=== PATIENT | female | born 1985 | race African-American/Black ===

== ENCOUNTER → 2020-01-25 | Day surgery (SDC) | payer OTHER ==
--- NOTE | 2020-01-25 16:37 | RADIOLOGY REPORT (SQ) ---
EXAM DESCRIPTION: FNA BX W/ US GDN 1ST LES IMAGES COMPLETED DATE/TIME: 01/25/2020 3:00 pm REASON FOR STUDY: R59.0 LOCALIZED ENLARGED LYMPH NODES R59.0 LOCALIZED ENLARGED LYMPH NODES COMPARISON: PRIOR ULTRASOUND LIMITATIONS: None. PROCEDURE: Procedure, risks, benefit, and alternative explained to patient who then gave written con sent. The left neck was prepped and draped in a standard sterile fashion. A time-out was called for correct marking verification. Local anesthesia achieved using 10 ml of 1% lidocaine injection. Uti lizing direct ultrasound guidance fine-needle aspiration performed both of the left cervical lymph no de. A total of 2 passes was performed. On-site pathology deemed the specimens adequate. A sterile dressing was applied. No immediate complications noted. Images acquired during the procedure were stored on PACS. FINDINGS: Focused sonographic evaluation of the left neck demonstrated enlarged irregular appearing lymph node measuring 1.8 x 0.9 x 1.2 cm. Intraprocedural imaging demonstrates needle within the lesi on of interest. IMPRESSION: Successful ultrasound-guided fine-needle aspiration biopsy of the enlarged left cervical lymph node as above. Pathology pending. COMMENT: Patient medication list reviewed:Yes- Quality ID# [id number]:Eligible professional attests to docu menting in the medical record they obtained, updated, or reviewed the patient's current medications. TECHNICAL DOCUMENTATION: JOB ID: [id number] 2010 [employer]- All Rights Reserved Reading location - IP/workstation name: [email or web address]
== END ==
LOC: RAD 13:51 → EDSTATUS 14:30
PROVIDERS: ATTEND Otolaryngology
DX: R59.0 Localized enlarged lymph nodes (principal)
CPT/HCPCS: 10005; 88173

== ENCOUNTER 2020-03-08 09:19 | Day surgery (SDC) | payer OTHER ==
[~2020-03-08 09:19] MED LIST: CEFAZOLIN 2 GM/D5W RTU 2 GM/50 ML RTUPB IV PRN
[2020-03-08] MEDS ORDERED: LIDOCAINE 2%/EPINEPHRINE INJ 1.7 ML CARTRIDGE ONE (09:40)
[2020-03-08] MEDS ORDERED: MIDAZOLAM 2 MG/2 ML INJ ONE (09:44)
[2020-03-08] MEDS ORDERED: FENTANYL CITRATE INJ/PF 100 MCG/2 ML AMPUL ONE (09:44)
[2020-03-08] MEDS ORDERED: DEXAMETHASONE SOD PHOSPHATE INJ 4 MG/1 ML VIAL ONE (09:44)
[2020-03-08] MEDS ORDERED: ONDANSETRON HCL INJ/PF 4 MG/2 ML SDV ONE (09:44)
[2020-03-08] MEDS ORDERED: PROPOFOL INJ 200 MG/20 ML VIAL IV ONE (09:45)
[2020-03-08] MEDS ORDERED: SUCCINYLCHOLINE CHLORIDE INJ 200 MG/10 ML VIAL ONE (09:45)
--- NOTE | 2020-03-08 11:41 | Operative Report ---
[facility]: Date: 08 March 2020 History: 34-year-old female with level 5 lymphadenopathy on the left side. She underwent an FNA biopsy and the cytologic diagnosis was consistent with a reactive lymph node. The lymph node has persistently remained enlarged and the patient desires excision. Patient presents today for excision of deep cervical lymph node on the left. Informed consent was obtained from the patient. Pre-operative diagnosis: 1. Deep cervical lymph node, level 5, left Post operative diagnosis: Same as above Procedure: 1. Excision deep cervical lymph node, level 5, left [CPT: 68786] Surgeon: Nicolas Duong MD, FACS, [facility] Anesthesia: General via endotracheal intubation Procedure: After receiving informed consent from the patient, she was taken to the operating room placed supine on the operating table. After successful induction intubation by anesthesia, a shoulder roll was placed and the head was turned towards the right, exposing the left neck. The lymph node was identified and an incision was marked. This was then infiltrated 2% lidocaine with 100,000 epinephrine. Patient was then prepped and draped in a sterile fashion. A 15 blade was used to make an incision through the dermis and down to the subcutaneous tissue at this time blunt dissection revealed the platysma muscle which was transected. The posterior border of the sternocleidomastoid muscle was identified and blunt dissection was used to identify the deep cervical lymph node. Cutaneous nerves were identified and preserved. Blunt dissection was used to remove the lymph node from the surrounding tissues. The lymph node was then sent to pathology as a fresh specimen using lymph node protocol. Hemostasis was obtained using bipolar cautery. The wound was irrigated with copious muscle normal saline. Wound was inspected and hemostasis is obtained. A small piece of Surgicel was placed deep in the incision site. The wound was then closed in layers using 4-0 Monocryl. The platysma was approximated as well as the dermis. Dermabond, Mastisol, Steri-Strips and a pressure dressing nolan lied. Patient was then given back to anesthesia who successfully extubated the patient without any complications. Estimated blood loss: 5 mL Fluids: 800 mL The patient was then transported to the Post Anesthesia Care Unit in stable condition with spontaneous respiration. No complication.
== END 2020-03-08 12:30 | disposition home or self-care (01) ==
LOC: SC 09:19
PROVIDERS: ATTEND Otolaryngology
DX: R59.0 Localized enlarged lymph nodes (principal); D36.0 Benign neoplasm of lymph nodes; E04.1 Nontoxic single thyroid nodule; Z03.818 Encounter for observation for suspected exposure to other biological agents ruled out; Z87.891 Personal history of nicotine dependence
CPT/HCPCS: 38510; 88185 ×15; 88184; 87635; 88233; 88262; 88305 ×2; 00320; J2250; J3490; J1100; J3010; J0330; J2405; J2704; J0690; C9803; 320